=== PATIENT | female | born 1990 | race African-American/Black ===

== ENCOUNTER 2021-09-29 20:00 | Inpatient (IN) | payer OTHER ==
[2021-09-29] MEDS ORDERED: DINOPROSTONE 10 MG VAGINAL SUPPOSITORY VG ONE (21:15)
[2021-09-29 21:28] LABS: BASO % 0.6 % (0-2.0); EOS % 1.2 % (0-4.5); HEMATOCRIT 38.2 % (32.4-45.2); HEMOGLOBIN 12.9 GM/dL (10.7-15.3); LYMPH % 19.9 % (8-40); MCH 29.2 pg (25.7-33.7); MCHC 33.8 g/dl (32.0-36.0); MEAN CELL VOLUME 86.4 fl (80-96); MEAN PLT VOLUME 8.9 fl (7.5-11.1); MONO % 7.9 % (3.8-10.2); NEUT % 70.4 % (42.8-82.8); PLATELET COUNT 230 10^3/uL (134-434); RBC 4.43 M/mm3 (3.60-5.2); WHITE BLOOD COUNT 12.3 K/mm3 (4.0-10.0)
[2021-09-29 21:39] LABS: INR 0.92 (0.83-1.09); PROTHROMBIN TIME (PATIENT) 10.6 SEC (9.7-13.0)
[2021-09-29 21:42] LABS: ACTIVATED PTT 26.2 SECONDS (25.2-36.5)
[2021-09-29 21:52] LABS: CALCIUM 9.5 mg/dL (8.5-10.1)
[2021-09-29 21:53] LABS: BLOOD UREA NITROGEN 11.3 mg/dL (7-18)
[2021-09-29 21:56] LABS: CREATININE 0.6 mg/dL (0.55-1.3)
[2021-09-29] MEDS ORDERED: BUTORPHANOL TARTRATE 2 MG/ML VIAL IVPB ONE (22:12)
[2021-09-29] MEDS ORDERED: PROMETHAZINE HCL 25 MG/1 ML VIAL IVPUSH ONE (22:12)
[2021-09-29] MEDS ORDERED: ZOLPIDEM TARTRATE 5 MG TABLET PO PRN (22:13)
[2021-09-29] MEDS ORDERED: DEXTROSE 5%-LACTATED RINGERS 1,000 ML IV SCH (22:15)
[2021-09-29 22:49] LABS: HIV INTERPRETATION NEGATIVE (NEGATIVE)
[2021-09-30 01:10] VITALS: BMI 28.3
[2021-09-30] MEDS ORDERED: BUTORPHANOL TARTRATE 2 MG/ML VIAL ONE (07:17)
[2021-09-30] MEDS ORDERED: PROMETHAZINE HCL 25 MG/1 ML VIAL ONE (07:17)
[2021-09-30] MEDS ORDERED: OXYTOCIN 30 UNITS in 0.9% NS 30 UNIT/500 ML INFUS.BAG IVPB SCH (08:00)
[2021-09-30] MEDS ORDERED: OXYTOCIN 30 UNITS in 0.9% NS 30 UNIT/500 ML INFUS.BAG IVPB ONE (10:08)
[2021-09-30] MEDS ORDERED: FENTANYL/BUPIVACAINE/NS/PF - PCEA - 50 ML DISP.SYRIN EP ONE ×3 (11:16→19:45)
[2021-09-30] MEDS: FENTANYL/BUPIVACAINE/NS/PF - PCEA - 50 ML DISP.SYRIN EP SCH ×3 (11:40→19:47)
[2021-09-30] MEDS ORDERED: NALOXONE HCL 0.4 MG/ML VIAL IVPUSH PRN (11:52)
[2021-09-30] MEDS ORDERED: ELECTROLYTE-148 SOLN 1,000 ML IV SCH (12:45)
[2021-09-30] MEDS ORDERED: CITRIC ACID/SODIUM CITRATE 30 ML UNIT-DOSE CUP PO ONE (20:40)
[2021-09-30] MEDS ORDERED: ceFAZolin SODIUM 1 GM VIAL ONE (20:59)
[2021-09-30] MEDS ORDERED: OXYTOCIN 10 UNITS/ML VIAL ONE (21:11)
[2021-09-30] MEDS ORDERED: ONDANSETRON 4 MG/2 ML VIAL ONE (21:20)
[2021-09-30] MEDS ORDERED: KETOROLAC TROMETHAMINE 30 MG/1 ML VIAL ONE (21:20)
[2021-09-30] MEDS ORDERED: BETAMET ACET/BETAMET NA PH 30 MG/5 ML VIAL ONE (21:20)
[2021-09-30] MEDS: OXYTOCIN 20 UNITS in 0.9% NS 20 UNIT/1,000 ML INFUS.BAG IV SCH (21:35)
[2021-09-30] MEDS ORDERED: IBUPROFEN 600 MG TABLET (FP) PO PRN (22:08)
[2021-09-30] MEDS ORDERED: ACETAMINOPHEN 325 MG TABLET (FP) PO PRN ×2 (22:08→22:34)
[2021-09-30] MEDS ORDERED: morphine SULFATE/PF 1 MG/2 ML (2cc Syringe - QUVA) EP ONE (22:08)
[2021-09-30] MEDS ORDERED: ONDANSETRON 4 MG/2 ML VIAL IVPUSH PRN (22:08)
[2021-09-30] MEDS ORDERED: SENNOSIDES/DOCUSATE COMBO (SENNA PLUS) TABLET (UD) PO PRN (22:34)
[2021-09-30] MEDS ORDERED: SIMETHICONE 80 MG TAB.CHEW (FP) PO PRN (22:34)
[2021-09-30] MEDS ORDERED: IBUPROFEN 800 MG/8 ML IJ IVPB PRN (22:34)
[2021-09-30] MEDS ORDERED: METHYLERGONOVINE MALEATE 0.2 MG/1 ML AMP IM PRN (22:34)
[2021-09-30] MEDS ORDERED: OXYTOCIN 20 UNITS in 0.9% NS 20 UNIT/1,000 ML INFUS.BAG IV ONE (22:44)
[2021-10-01] MEDS: OXYTOCIN 20 UNITS in 0.9% NS 20 UNIT/1,000 ML INFUS.BAG IV SCH (05:33)
[2021-10-01 10:03] LABS: BASO % 0.2 % (0-2.0); EOS % 0.1 % (0-4.5); HEMATOCRIT 31.3 % (32.4-45.2); HEMOGLOBIN 10.7 GM/dL (10.7-15.3); MCH 29.8 pg (25.7-33.7); MCHC 34.1 g/dl (32.0-36.0); MEAN CELL VOLUME 87.5 fl (80-96); MEAN PLT VOLUME 9.1 fl (7.5-11.1); MONO % 7.1 % (3.8-10.2); NEUT % 81.6 % (42.8-82.8); PLATELET COUNT 182 10^3/uL (134-434); RBC 3.58 M/mm3 (3.60-5.2); WHITE BLOOD COUNT 16.3 K/mm3 (4.0-10.0)
[2021-10-01] MEDS: PRENATAL VITAMINS W/ FOLIC ACID TABLET (FP) PO SCH (10:24)
[2021-10-01] MEDS ORDERED: oxyCODONE HCL 5 MG TABLET PO PRN ×2 (10:34)
[2021-10-01] MEDS: IBUPROFEN 600 MG TABLET (FP) PO PRN (17:13)
[2021-10-01] MEDS ORDERED: BISACODYL 10 MG SUPP.RECT RC PRN (22:34)
[2021-10-02] MEDS: IBUPROFEN 600 MG TABLET (FP) PO PRN (07:33)
[2021-10-02] MEDS: PRENATAL VITAMINS W/ FOLIC ACID TABLET (FP) PO SCH (09:37)
[2021-10-02 11:36] VITALS: BP 127/82; PULSE 80; TEMP 98.2
[2021-10-02] MEDS ORDERED: DIPHTH,PERTUSS(ACELL),TET 0.5 ML DISP.SYRIN IM ONE (11:45)
[2021-10-03 13:05] LABS: POC NITRAZINE POS
== END 2021-10-02 13:48 | disposition home or self-care (01) | DRG 788 ==
LOC: JLDR 20:00 → J3W 10-01 00:02
PROVIDERS: ADMIT Obstetrics & Gynecology; ATTEND Obstetrics & Gynecology
PROC: 10D00Z1 Extraction of Products of Conception, Low, Open Approach (ICD-10-PCS; principal; 2021-09-30)
DX: O76 Abnormality in fetal heart rate and rhythm complicating labor and delivery (principal); O62.9 Abnormality of forces of labor, unspecified; O48.0 Post-term pregnancy; O69.81X0 Labor and delivery complicated by cord around neck, without compression, not applicable or unspecified; Z3A.41 41 weeks gestation of pregnancy; Z37.0 Single live birth
CPT/HCPCS: 36415; 80048; 83986-QW; 85025; 85610; 85730; 86762; 86780; 86850; 86900; 86901; 87389; 88307-TC; 90715; C9803-CS; U0003; U0005